=== PATIENT | male | born 1960 | race Two or more races ===

== ENCOUNTER 2021-03-15 11:08 | Inpatient (IN) ==
[2021-03-15] MEDS ORDERED: hydrALAZINE 20 MG/1 ML VIAL IV PRN ×2 (11:18→21:58)
[2021-03-15] MEDS ORDERED: MAGNESIUM SULF RIDER 2 GM/50 ML PREMIX IV PRN (11:18)
[2021-03-15] MEDS ORDERED: ALUMINUM/MAGNES/SIMETH MAX STR 30 ML UDCUP PO PRN ×2 (11:18→21:50)
[2021-03-15] MEDS ORDERED: MAGNESIUM SULF RIDER 4 GM/100 ML PREMIX IV PRN (11:18)
[2021-03-15] MEDS ORDERED: ZALEPLON 5 MG CAPSULE PO PRN ×2 (11:18→22:04)
[2021-03-15] MEDS ORDERED: diphenhydrAMINE CAP 25 MG CAPSULE PO PRN ×2 (11:18→21:56)
[2021-03-15] MEDS ORDERED: ONDANSETRON 4 MG/2 ML VIAL IV PRN ×2 (11:18→22:03)
[2021-03-15] MEDS ORDERED: METOPROLOL TARTRATE 50 MG TABLET PO SCH (21:00)
[2021-03-15] MEDS ORDERED: FLECAINIDE 50 MG TABLET PO SCH (21:00)
[2021-03-15] MEDS ORDERED: APIXABAN 5 MG TABLET PO SCH (21:00)
[2021-03-15] MEDS ORDERED: MORPHINE 4 MG/1 ML VIAL IV PRN (22:02)
[2021-03-15] MEDS: FLECAINIDE 50 MG TABLET PO SCH (23:38)
[2021-03-15] MEDS: APIXABAN 5 MG TABLET PO SCH (23:38)
[2021-03-15] MEDS: METOPROLOL TARTRATE 50 MG TABLET PO SCH (23:38)
[2021-03-15] MEDS: FUROSEMIDE 40 MG/4 ML VIAL IV SCH (23:42)
[2021-03-16 06:13] LABS: Basophils % 0.3 % (0.0-0.8); Eosinophils % 0.1 % (0.00-10.9); Hematocrit 43.7 VOL% (42.0-52.0); Hemoglobin 14.5 GM/DL (14.0-18.0); Immature Granulocytes % 0.5 %; Immature Granulocytes Absolute 0.05 #; Lymphocytes # 1.4 10*3/uL (1.4-4.0); Lymphocytes % 14.9 % (21.2-54.2); Mean Corpuscular HGB Conc 33.2 GM/DL (32-36); Mean Platelet Volume 11.3 FL (9.6-12.0); Monocytes % 14.4 % (1.7-12.7); Neutrophils % 69.8 % (38.7-73.9); Platelet Count 231 T/CUMM (130-400); Red Blood Count 4.37 MC/CUMM (3.8-5.5); White Blood Count 9.4 T/CUMM (4-12)
[2021-03-16 06:25] LABS: Albumin 3.1 G/DL (3.4-5.0); Bilirubin,Total 3.9 MG/DL (0.2-1.0); Calcium 9.2 MG/DL (8.5-10.1); Osmolality,Calculated 292.7 MOS/KG (273-304); Potassium 4.4 MMOL/L (3.5-5.1); Risk Ratio 2.66; Total Protein 6.2 G/DL (6.4-8.2); VLDL CHOLESTEROL 10.6 MG/DL
[2021-03-16] MEDS ORDERED: FUROSEMIDE 40 MG/4 ML VIAL IV SCH (08:00)
[2021-03-16] MEDS: PANTOPRAZOLE 40 MG TABLET PO SCH (08:28)
[2021-03-16] MEDS: METOPROLOL TARTRATE 50 MG TABLET PO SCH (08:28)
[2021-03-16] MEDS: APIXABAN 5 MG TABLET PO SCH (08:28)
[2021-03-16] MEDS: FLECAINIDE 50 MG TABLET PO SCH ×2 (08:28→20:48)
[2021-03-16] MEDS: FUROSEMIDE 40 MG/4 ML VIAL IV SCH ×2 (08:29→16:40)
[2021-03-16] MEDS ORDERED: PANTOPRAZOLE 40 MG TABLET PO SCH (09:00)
[2021-03-16] MEDS: METOPROLOL TARTRATE 25 MG TABLET PO SCH ×2 (16:40→20:48)
[2021-03-17 05:57] LABS: Basophils % 0.4 % (0.0-0.8); Eosinophils % 0.4 % (0.00-10.9); Hematocrit 42.1 VOL% (42.0-52.0); Hemoglobin 13.9 GM/DL (14.0-18.0); Immature Granulocytes % 0.5 %; Immature Granulocytes Absolute 0.04 #; Lymphocytes # 1.4 10*3/uL (1.4-4.0); Lymphocytes % 17.7 % (21.2-54.2); Mean Corpuscular Volume 98.8 FL (87-102); Mean Platelet Volume 11.2 FL (9.6-12.0); Monocytes % 14.8 % (1.7-12.7); Neutrophils % 66.2 % (38.7-73.9); Platelet Count 209 T/CUMM (130-400); Red Blood Count 4.26 MC/CUMM (3.8-5.5); Red Cell Distribution Width 12.9 % (9.3-17.3)
[2021-03-17 06:14] LABS: Albumin 2.7 G/DL (3.4-5.0); Bilirubin,Total 2.9 MG/DL (0.2-1.0); Calcium 8.5 MG/DL (8.5-10.1); Osmolality,Calculated 298.3 MOS/KG (273-304); Potassium 3.5 MMOL/L (3.5-5.1); Total Protein 5.6 G/DL (6.4-8.2)
[2021-03-17 06:15] LABS: Troponin I 0.077 NG/ML (0.00-0.045)
[2021-03-17] MEDS: PANTOPRAZOLE 40 MG TABLET PO SCH (08:37)
[2021-03-17] MEDS: METOPROLOL TARTRATE 25 MG TABLET PO SCH ×3 (08:37→20:18)
[2021-03-17] MEDS: FLECAINIDE 50 MG TABLET PO SCH ×2 (08:37→20:18)
[2021-03-17] MEDS: FUROSEMIDE 40 MG/4 ML VIAL IV SCH ×2 (08:38→16:58)
[2021-03-18 05:58] LABS: Basophils % 0.6 % (0.0-0.8); Eosinophils # 0.1 10*3/uL (0.0-0.87); Eosinophils % 1.1 % (0.00-10.9); Hematocrit 42.1 VOL% (42.0-52.0); Hemoglobin 13.8 GM/DL (14.0-18.0); Immature Granulocytes % 0.3 %; Immature Granulocytes Absolute 0.02 #; Lymphocytes # 1.6 10*3/uL (1.4-4.0); Lymphocytes % 21.4 % (21.2-54.2); Mean Corpuscular HGB Conc 32.8 GM/DL (32-36); Mean Corpuscular Volume 99.3 FL (87-102); Monocytes % 13.5 % (1.7-12.7); Neutrophils % 63.1 % (38.7-73.9); Platelet Count 201 T/CUMM (130-400); Red Blood Count 4.24 MC/CUMM (3.8-5.5); Red Cell Distribution Width 12.6 % (9.3-17.3); White Blood Count 7.3 T/CUMM (4-12)
[2021-03-18 06:27] LABS: Albumin 2.6 G/DL (3.4-5.0); Bilirubin,Total 1.2 MG/DL (0.2-1.0); Calcium 8.3 MG/DL (8.5-10.1); Osmolality,Calculated 295.1 MOS/KG (273-304); Potassium 3.2 MMOL/L (3.5-5.1); Total Protein 5.5 G/DL (6.4-8.2)
[2021-03-18] MEDS ORDERED: diphenhydrAMINE CAP 50 MG CAPSULE PO ONE (07:09)
[2021-03-18] MEDS ORDERED: MAGNESIUM SULF RIDER 2 GM/50 ML PREMIX IV PRN (07:09)
[2021-03-18] MEDS ORDERED: DIAZEPAM 5 MG TABLET PO ONE ×2 (07:09→13:45)
[2021-03-18] MEDS ORDERED: POTASSIUM CHLORIDE 20 MEQ TABLET PO ONE (07:11)
[2021-03-18] MEDS ORDERED: SODIUM CHLORIDE 0.9% 1,000 ML IV SCH (07:30)
[2021-03-18] MEDS: FUROSEMIDE 40 MG/4 ML VIAL IV SCH ×2 (08:48→16:46)
[2021-03-18] MEDS: METOPROLOL TARTRATE 25 MG TABLET PO SCH ×3 (08:49→20:56)
[2021-03-18] MEDS: FLECAINIDE 50 MG TABLET PO SCH ×2 (08:49→20:57)
[2021-03-18] MEDS: PANTOPRAZOLE 40 MG TABLET PO SCH (08:49)
[2021-03-18] MEDS: POTASSIUM CHLORIDE RIDER 10 MEQ in PREMIX 1 EACH IV PRN ×2 (08:50→10:18)
[2021-03-18] MEDS ORDERED: DEXTROSE 50% 25 GM/50 ML VIAL IV PRN (11:00)
[2021-03-18] MEDS ORDERED: GLUCAGON 1 MG VIAL IM PRN (11:00)
[2021-03-18] MEDS: CHLORHEXIDINE 4% SOLN 118 ML BOTTLE TOP SCH ×2 (12:12→20:54)
[2021-03-18] MEDS: CHLORHEXIDINE 0.12% ORAL RINSE 60 ML BOTTLE SWISH/SPIT SCH ×2 (12:12→20:56)
[2021-03-18] MEDS ORDERED: LIDOCAINE 1% 20 ML VIAL ONE (13:06)
[2021-03-18] MEDS ORDERED: HEPARIN/NACL 0.9% 2 UNITS/ML 1,000 UNIT/500 ML BAG IV ONE (13:06)
[2021-03-18] MEDS ORDERED: MIDAZOLAM 2 MG/2 ML VIAL ONE (14:11)
[2021-03-18] MEDS ORDERED: fentaNYL 100 MCG/2 ML VIAL ONE (14:11)
[2021-03-18 16:43] LABS: ABG Base Excess 7.4 MMOL/L (-2.5-2.5); ABG HCO3 31.2 MMOL/L (20-26); ABG PCO2 38.2 MM HG (35-48); ABG PH 7.515 (7.35-7.45); ABG TCO2 26.2 MMOL/L (23-27); Allen Test Positive
[2021-03-18] MEDS: MORPHINE 4 MG/1 ML VIAL IV PRN ×2 (16:45→23:10)
[2021-03-18] MEDS: CLORAZEPATE 7.5 MG TABLET PO PRN (17:17)
[2021-03-18 19:35] LABS: Bilirubin,Urine Negative (Negative); Blood, Urine Small mg/dL (Negative); Glucose,Urine (UA) Negative (Negative); Ketones,Urine Negative (Negative); Nitrite,Urine Negative (Negative); Protein,Urine Negative; RBC,Urine 1 /HPF (0-4); Urine Appearance CLEAR (Clear); Urine Color Yellow (Yellow); Urine Specific Gravity 1.034 (1.001-1.035)
[2021-03-19] MEDS: CLORAZEPATE 7.5 MG TABLET PO PRN (00:15)
[2021-03-19] MEDS: CHLORHEXIDINE 4% SOLN 118 ML BOTTLE TOP SCH ×2 (01:45→04:30)
[2021-03-19 03:02] LABS: Basophils % 0.4 % (0.0-0.8); Eosinophils # 0.1 10*3/uL (0.0-0.87); Eosinophils % 0.7 % (0.00-10.9); Hematocrit 44.9 VOL% (42.0-52.0); Hemoglobin 14.6 GM/DL (14.0-18.0); Immature Granulocytes % 0.6 %; Immature Granulocytes Absolute 0.04 #; Lymphocytes # 1.1 10*3/uL (1.4-4.0); Lymphocytes % 15.4 % (21.2-54.2); Mean Corpuscular HGB Conc 32.5 GM/DL (32-36); Mean Corpuscular Volume 100.7 FL (87-102); Mean Platelet Volume 10.8 FL (9.6-12.0); Monocytes % 15.2 % (1.7-12.7); Neutrophils % 67.7 % (38.7-73.9); Platelet Count 199 T/CUMM (130-400); Red Blood Count 4.46 MC/CUMM (3.8-5.5); Red Cell Distribution Width 12.5 % (9.3-17.3); White Blood Count 7.1 T/CUMM (4-12)
[2021-03-19] MEDS: MORPHINE 4 MG/1 ML VIAL IV PRN ×3 (03:26→21:05)
[2021-03-19 03:35] LABS: Calcium 8.4 MG/DL (8.5-10.1); Osmolality,Calculated 289.3 MOS/KG (273-304); Potassium 3.4 MMOL/L (3.5-5.1)
[2021-03-19 04:18] LABS: Hepatitis B Core IgM Quant 0.12 Index; Hepatitis B Surface Ag Quant < 0.10 Index; Hepatitis B Surface Ag Result Non-Reactive (NonReactive); Hepatitis C Virus Ab Quant 0.11 Index; Hepatitis C Virus Ab Result Non-Reactive (NonReactive)
[2021-03-19] MEDS ORDERED: VANCOMYCIN 1,000 MG VIAL ONE (04:22)
[2021-03-19] MEDS: POTASSIUM CHLORIDE RIDER 10 MEQ in PREMIX 1 EACH IV PRN ×2 (04:25→06:00)
[2021-03-19] MEDS ORDERED: CEFUROXIME INJ 1,500 MG in SODIUM CHLORIDE 0.9% 100 ML IV ONE (05:00)
[2021-03-19] MEDS ORDERED: MINERAL OIL/PETROLATUM OPH OINT 3.5 GM TUBE ONE (05:57)
[2021-03-19] MEDS ORDERED: AMINOCAPROIC ACID 5,000 MG/20 ML VIAL ONE (05:58)
[2021-03-19] MEDS ORDERED: SODIUM CHLORIDE 0.9% 1,000 ML IV ONE (05:59)
[2021-03-19] MEDS ORDERED: MIDAZOLAM 10 MG/2 ML VIAL ONE ×4 (05:59→09:13)
[2021-03-19] MEDS ORDERED: LACTATED RINGERS 1,000 ML IV ONE (05:59)
[2021-03-19] MEDS ORDERED: HEPARIN/NACL 0.9% 2 UNITS/ML 1,000 UNIT/500 ML BAG IV ONE (05:59)
[2021-03-19] MEDS ORDERED: SODIUM CHLORIDE 0.9% 250 ML IV ONE (05:59)
[2021-03-19] MEDS ORDERED: LIDOCAINE 2% 5 ML VIAL ONE ×2 (06:00→10:27)
[2021-03-19] MEDS ORDERED: ETOMIDATE 40 MG/20 ML VIAL IV ONE (06:04)
[2021-03-19] MEDS ORDERED: VECURONIUM 10 MG VIAL IV ONE ×5 (06:06→09:13)
[2021-03-19] MEDS ORDERED: SUFentanil 250 MCG/5 ML AMP ONE ×2 (06:07→07:54)
[2021-03-19] MEDS ORDERED: CALCIUM CHLORIDE 1,000 MG/10 ML VIAL IV ONE ×2 (06:09→10:34)
[2021-03-19 07:41] LABS: ABG Base Excess 7.7 MMOL/L (-2.5-2.5); ABG HCO3 31.5 MMOL/L (20-26); ABG PCO2 41.8 MM HG (35-48); ABG PH 7.491 (7.35-7.45); Glucose Heart Surgery 137 MG/DL (74-106); Hematocrit Heart Surgery 44.5 PERCENT (42-52); Hemoglobin Heart Surgery 14.5 G/DL (14.0-18.0); Ionized Calcium Arterial 1.18 MMOL/L (1.21-1.46); PCO2 Patient Temp Arterial 41.8 MMHG; PH Patient Temp Arterial 7.491; Patient Temperature 37 CELCIUS; Potassium Heart/CVR 3.4 MMOL/L (3.5-5.1); Sodium Heart/CVR 139 MMOL/L (135-145)
[2021-03-19] MEDS ORDERED: AMIODARONE 150 MG/3 ML VIAL ONE ×2 (08:01→08:02)
[2021-03-19 08:57] LABS: Hematocrit Heart Surgery 37.4 PERCENT (42-52); Hemoglobin Heart Surgery 12.2 G/DL (14.0-18.0); PCO2 Patient Temp Venous 37.8 MM HG; PH Patient Temp Venous 7.538; PO2 Patient Temp Venous 49.2 MM HG; Potassium Heart/CVR 3.6 MMOL/L (3.5-5.1); VBG HCO3 32.5 MEQ/L (24-28); VBG PCO2 37.8 MMHG (41-51); VBG PH 7.538; VBG PO2 49.2 MMHG (17-40); VBG Total CO2 28.3 MMOL/L
[2021-03-19] MEDS ORDERED: MULTIVITAMIN (CENTRUM) TABLET PO SCH (09:00)
[2021-03-19] MEDS ORDERED: SODIUM CHLORIDE 0.9% 200 ML IV ONE (09:05)
[2021-03-19] MEDS ORDERED: SEVOFLURANE 1 UNIT/15 MINUTE INH ONE (09:08)
[2021-03-19] MEDS ORDERED: PHENYLEPHRINE DRIP 20 MG/250 ML PREMIX IV ONE (09:08)
[2021-03-19] MEDS ORDERED: diphenhydrAMINE 50 MG/1 ML VIAL ONE (09:13)
[2021-03-19 09:27] LABS: Hematocrit Heart Surgery 36.3 PERCENT (42-52); Hemoglobin Heart Surgery 11.8 G/DL (14.0-18.0); PCO2 Patient Temp Venous 29.9 MM HG; PH Patient Temp Venous 7.618; PO2 Patient Temp Venous 41.6 MM HG; Potassium Heart/CVR 3.7 MMOL/L (3.5-5.1); VBG Base Excess 9.2 MEQ/L (0-4); VBG HCO3 32.8 MEQ/L (24-28); VBG Oxygen Saturation 88.4 %; VBG PCO2 34.6 MMHG (41-51); VBG PH 7.57; VBG PO2 51.1 MMHG (17-40)
[2021-03-19] MEDS ORDERED: FAMOTIDINE 20 MG/2 ML VIAL IV ONE (09:28)
[2021-03-19] MEDS ORDERED: ALBUMIN 5% 25.0 GM/500 ML VIAL IV ONE (09:35)
[2021-03-19] MEDS ORDERED: CALCIUM CHLORIDE 1,000 MG/10 ML SYRINGE IV ONE (09:36)
[2021-03-19] MEDS ORDERED: SODIUM BICARBONATE 50 MEQ/50 ML SYRINGE IV ONE (09:36)
[2021-03-19] MEDS ORDERED: EPINEPHrine 1 MG/10 ML SYRINGE ONE (09:36)
[2021-03-19] MEDS ORDERED: PHENYLEPHRINE DRIP 40 MG/250 ML PREMIX IV ONE (09:38)
[2021-03-19] MEDS: FUROSEMIDE 40 MG/4 ML VIAL IV SCH (10:11)
[2021-03-19] MEDS: FLECAINIDE 50 MG TABLET PO SCH (10:12)
[2021-03-19] MEDS: CHLORHEXIDINE 0.12% ORAL RINSE 60 ML BOTTLE SWISH/SPIT SCH (10:12)
[2021-03-19] MEDS: PANTOPRAZOLE 40 MG TABLET PO SCH (10:12)
[2021-03-19] MEDS: METOPROLOL TARTRATE 25 MG TABLET PO SCH (10:12)
[2021-03-19] MEDS ORDERED: ALBUMIN 25% 25 GM/100 ML VIAL IV ONE (10:27)
[2021-03-19] MEDS ORDERED: MAGNESIUM SULFATE 5 GM/10 ML VIAL IV ONE (10:27)
[2021-03-19] MEDS ORDERED: methylPREDNISolone SOD SUC 1,000 MG/8 ML VIAL ONE (10:27)
[2021-03-19] MEDS ORDERED: FUROSEMIDE 20 MG/2 ML VIAL ONE (10:28)
[2021-03-19] MEDS ORDERED: DEXTROSE 5% KCL 20 MEQ 20 MEQ/1,000 ML BAG IV ONE (10:28)
[2021-03-19] MEDS ORDERED: HEPARIN 10,000 UNIT/10 ML VIAL ONE (10:28)
[2021-03-19] MEDS ORDERED: PROTAMINE SULFATE 50 MG/5 ML VIAL IV ONE (10:28)
[2021-03-19] MEDS ORDERED: SODIUM BICARBONATE 50 MEQ/50 ML VIAL IV ONE (10:28)
[2021-03-19] MEDS ORDERED: PROTAMINE SULFATE 250 MG/25 ML VIAL IV ONE (10:28)
[2021-03-19] MEDS ORDERED: MANNITOL 100 GM/500 ML BAG IV ONE (10:28)
[2021-03-19 10:29] LABS: ABG Base Excess 6.5 MMOL/L (-2.5-2.5); ABG HCO3 30.4 MMOL/L (20-26); ABG PCO2 28.4 MM HG (35-48); ABG PH 7.596 (7.35-7.45); ABG TCO2 24.2 MMOL/L (23-27); Glucose Heart Surgery 240 MG/DL (74-106); Hematocrit Heart Surgery 37.5 PERCENT (42-52); Hemoglobin Heart Surgery 12.2 G/DL (14.0-18.0); Ionized Calcium Arterial 1.18 MMOL/L (1.21-1.46); PCO2 Patient Temp Arterial 28.4 MMHG; PH Patient Temp Arterial 7.596; Patient Temperature 37 CELCIUS; Potassium Heart/CVR 3.2 MMOL/L (3.5-5.1); Sodium Heart/CVR 138 MMOL/L (135-145)
[2021-03-19] MEDS: SODIUM CHLORIDE 0.45% 1,000 ML IV SCH ×2 (10:57)
[2021-03-19] MEDS ORDERED: AMIODARONE INJ 450 MG in DEXTROSE 5% 241 ML IV SCH (11:00)
[2021-03-19] MEDS ORDERED: AMIODARONE 450 MG/9 ML VIAL IV ONE (11:22)
[2021-03-19] MEDS ORDERED: DEXTROSE 50% 25 GM/50 ML VIAL IV PRN ×2 (11:28)
[2021-03-19] MEDS ORDERED: POTASSIUM CHLORIDE RIDER 10 MEQ in PREMIX 1 EACH IV PRN (11:28)
[2021-03-19] MEDS ORDERED: LACTATED RINGERS 250 ML IV PRN (11:28)
[2021-03-19] MEDS ORDERED: MAGNESIUM SULF RIDER 2 GM/50 ML PREMIX IV PRN (11:28)
[2021-03-19] MEDS ORDERED: ONDANSETRON 4 MG/2 ML VIAL IV PRN (11:28)
[2021-03-19] MEDS ORDERED: ACETAMINOPHEN 650 MG SUPP RECTAL PRN (11:28)
[2021-03-19] MEDS ORDERED: VECURONIUM 10 MG VIAL IV PRN ×2 (11:28)
[2021-03-19] MEDS ORDERED: MIDAZOLAM 10 MG/2 ML VIAL IV PRN (11:28)
[2021-03-19] MEDS ORDERED: MAGNESIUM SULF RIDER 4 GM/100 ML PREMIX IV PRN (11:28)
[2021-03-19] MEDS ORDERED: MIDAZOLAM 2 MG/2 ML VIAL IV PRN (11:28)
[2021-03-19] MEDS ORDERED: INSULIN REGULAR 100 UNIT/ML IV ONE (11:28)
[2021-03-19] MEDS ORDERED: INSULIN REGULAR 100 UNIT/ML IV PRN (11:28)
[2021-03-19] MEDS ORDERED: CHLORHEXIDINE 4% SOLN 118 ML BOTTLE TOP PRN (11:28)
[2021-03-19] MEDS ORDERED: CALCIUM CHLORIDE 1,000 MG/10 ML SYRINGE IV PRN (11:28)
[2021-03-19] MEDS ORDERED: PHENYLEPHRINE DRIP 40 MG/250 ML PREMIX IV PRN (11:28)
[2021-03-19] MEDS ORDERED: NITROPRUSSIDE 100 MG in DEXTROSE 5% 250 ML IV PRN (11:28)
[2021-03-19] MEDS ORDERED: MORPHINE 10 MG/1 ML VIAL IV PRN (11:28)
[2021-03-19 11:32] LABS: ABG Base Excess 7.5 MMOL/L (-2.5-2.5); ABG HCO3 31.3 MMOL/L (20-26); ABG PCO2 34.1 MM HG (35-48); ABG PH 7.551 (7.35-7.45); ABG TCO2 25.2 MMOL/L (23-27); Glucose Heart Surgery 222 MG/DL (74-106); Hematocrit Heart Surgery 44.6 PERCENT (42-52); Hemoglobin Heart Surgery 14.5 G/DL (14.0-18.0)
[2021-03-19 11:43] LABS: Basophils % 0.2 % (0.0-0.8); Eosinophils # 0.1 10*3/uL (0.0-0.87); Eosinophils % 0.7 % (0.00-10.9); Hematocrit 43.2 VOL% (42.0-52.0); Hemoglobin 14.1 GM/DL (14.0-18.0); Immature Granulocytes % 0.7 %; Immature Granulocytes Absolute 0.06 #; Lymphocytes # 0.5 10*3/uL (1.4-4.0); Lymphocytes % 6.3 % (21.2-54.2); Mean Corpuscular HGB Conc 32.6 GM/DL (32-36); Mean Corpuscular Volume 99.5 FL (87-102); Monocytes % 6.4 % (1.7-12.7); Neutrophils % 85.7 % (38.7-73.9); Platelet Count 158 T/CUMM (130-400); Red Blood Count 4.34 MC/CUMM (3.8-5.5); Red Cell Distribution Width 12.3 % (9.3-17.3); White Blood Count 8.2 T/CUMM (4-12)
[2021-03-19] MEDS: ALBUMIN 5% 12.5 GM/250 ML VIAL IV PRN ×4 (11:44→17:48)
[2021-03-19 11:56] LABS: INR 1.3; PT Patient Result 14.5 SECS (10.5-12.0); Partial Thromboplastin Time 26.3 SECS (23.9-33.8)
[2021-03-19 12:01] LABS: CKMB % 9.7 %
[2021-03-19 12:04] LABS: High Sensitive Troponin I* 4315.2 ng/L (0-78)
[2021-03-19 12:05] LABS: Calcium 10.2 MG/DL (8.5-10.1); Osmolality,Calculated 293.1 MOS/KG (273-304); Potassium 4.1 MMOL/L (3.5-5.1); Total Protein 5.7 G/DL (6.4-8.2)
[2021-03-19] MEDS: LACTATED RINGERS 1,000 ML IV PRN ×4 (12:15→18:42)
[2021-03-19] MEDS ORDERED: NITROGLYCERIN DRIP 50 MG/250 ML BOTTLE IV PRN (13:37)
[2021-03-19 14:19] LABS: ABG Base Excess 5.7 MMOL/L (-2.5-2.5); ABG HCO3 29.5 MMOL/L (20-26); ABG PH 7.519 (7.35-7.45); ABG PO2 78.1 MM HG (80-95); ABG TCO2 24.8 MMOL/L (23-27); Glucose Heart Surgery 189 MG/DL (74-106); Hematocrit Heart Surgery 39.6 PERCENT (42-52); Hemoglobin Heart Surgery 12.9 G/DL (14.0-18.0); Potassium Heart/CVR 3.5 MMOL/L (3.5-5.1)
[2021-03-19 17:17] LABS: ABG Base Excess 4.7 MMOL/L (-2.5-2.5); ABG HCO3 28.6 MMOL/L (20-26); ABG Oxygen Saturation 98.6 % (95-100); ABG PCO2 34.9 MM HG (35-48); ABG PH 7.507 (7.35-7.45); ABG TCO2 24.4 MMOL/L (23-27); Glucose Heart Surgery 180 MG/DL (74-106); Hematocrit Heart Surgery 35.9 PERCENT (42-52); Hemoglobin Heart Surgery 11.7 G/DL (14.0-18.0); Potassium Heart/CVR 3.7 MMOL/L (3.5-5.1)
[2021-03-19] MEDS: POTASSIUM CHLORIDE RIDER 20 MEQ in PREMIX 1 EACH IV PRN ×2 (17:22→20:02)
[2021-03-19] MEDS: CEFUROXIME INJ 1,500 MG in SODIUM CHLORIDE 0.9% 100 ML IV SCH (18:11)
[2021-03-19 19:48] LABS: ABG Oxygen Saturation 98.8 % (95-100); ABG PCO2 35.1 MM HG (35-48); ABG PH 7.495 (7.35-7.45); ABG TCO2 23.8 MMOL/L (23-27); Glucose Heart Surgery 199 MG/DL (74-106); Hematocrit Heart Surgery 37.9 PERCENT (42-52); Hemoglobin Heart Surgery 12.3 G/DL (14.0-18.0); Potassium Heart/CVR 3.8 MMOL/L (3.5-5.1)
[2021-03-19 20:17] LABS: CKMB % 6.7 %
[2021-03-19 20:23] LABS: High Sensitive Troponin I* 3790.6 ng/L (0-78)
[2021-03-19 20:49] LABS: ABG Base Excess 2.9 MMOL/L (-2.5-2.5); ABG PCO2 37.9 MM HG (35-48); ABG PH 7.457 (7.35-7.45); ABG TCO2 23.5 MMOL/L (23-27); Glucose Heart Surgery 195 MG/DL (74-106); Hematocrit Heart Surgery 37.8 PERCENT (42-52); Hemoglobin Heart Surgery 12.3 G/DL (14.0-18.0); Potassium Heart/CVR 4.5 MMOL/L (3.5-5.1)
[2021-03-19] MEDS: AMIODARONE INJ 450 MG in DEXTROSE 5% 241 ML IV SCH (21:09)
[2021-03-19] MEDS ORDERED: FUROSEMIDE 40 MG/4 ML VIAL IV PRN (21:25)
[2021-03-19 22:21] LABS: ABG Base Excess 2.9 MMOL/L (-2.5-2.5); ABG Oxygen Saturation 98.8 % (95-100); ABG PCO2 38.9 MM HG (35-48); ABG PH 7.448 (7.35-7.45); ABG TCO2 23.8 MMOL/L (23-27); Glucose Heart Surgery 192 MG/DL (74-106); Hematocrit Heart Surgery 37.2 PERCENT (42-52); Hemoglobin Heart Surgery 12.1 G/DL (14.0-18.0); Potassium Heart/CVR 4.2 MMOL/L (3.5-5.1)
[2021-03-19 23:46] LABS: ABG Base Excess 4.1 MMOL/L (-2.5-2.5); ABG HCO3 28.1 MMOL/L (20-26); ABG Oxygen Saturation 99.3 % (95-100); ABG PCO2 38.3 MM HG (35-48); ABG TCO2 24.5 MMOL/L (23-27); Glucose Heart Surgery 187 MG/DL (74-106); Potassium Heart/CVR 4.3 MMOL/L (3.5-5.1)
[2021-03-20 00:39] LABS: ABG Base Excess 3.7 MMOL/L (-2.5-2.5); ABG HCO3 27.7 MMOL/L (20-26); ABG Oxygen Saturation 97.9 % (95-100); ABG PCO2 39.4 MM HG (35-48); ABG PH 7.455 (7.35-7.45); ABG PO2 98.6 MM HG (80-95); ABG TCO2 24.3 MMOL/L (23-27); Glucose Heart Surgery 189 MG/DL (74-106); Hematocrit Heart Surgery 38.5 PERCENT (42-52); Hemoglobin Heart Surgery 12.5 G/DL (14.0-18.0); Potassium Heart/CVR 4.3 MMOL/L (3.5-5.1)
[2021-03-20] MEDS: INSULIN REGULAR 100 UNIT/ML SUBCUT SCH ×3 (00:59→08:03)
[2021-03-20] MEDS: CHLORHEXIDINE 0.12% ORAL RINSE 60 ML BOTTLE SWISH/SPIT SCH ×3 (01:24→21:59)
[2021-03-20 04:32] LABS: ABG Base Excess 3.7 MMOL/L (-2.5-2.5); ABG HCO3 27.2 MMOL/L (20-26); ABG Oxygen Saturation 97.6 % (95-100); ABG PH 7.484 (7.35-7.45); ABG PO2 102.5 MM HG (80-95); ABG TCO2 28.3 MMOL/L (23-27); Glucose Heart Surgery 152 MG/DL (74-106); Hemoglobin Heart Surgery 12.6 G/DL (14.0-18.0)
[2021-03-20 04:47] LABS: Basophils % 0.1 % (0.0-0.8); Hematocrit 37.7 VOL% (42.0-52.0); Hemoglobin 12.2 GM/DL (14.0-18.0); Immature Granulocytes % 0.5 %; Immature Granulocytes Absolute 0.07 #; Lymphocytes # 0.3 10*3/uL (1.4-4.0); Lymphocytes % 2.5 % (21.2-54.2); Mean Corpuscular HGB Conc 32.4 GM/DL (32-36); Mean Corpuscular Volume 101.9 FL (87-102); Mean Platelet Volume 11.1 FL (9.6-12.0); Monocytes % 9.1 % (1.7-12.7); Neutrophils % 87.8 % (38.7-73.9); Platelet Count 140 T/CUMM (130-400); Red Cell Distribution Width 12.5 % (9.3-17.3); White Blood Count 13.4 T/CUMM (4-12)
[2021-03-20 04:56] LABS: Lymphocytes 4 % (20-55); Segmented Neutrophils 92 % (50-85); Total Cells Counted 100
[2021-03-20 04:57] LABS: Hypochromasia 1+; Microcytosis 1+; Ovalocytes Slight; Platelet Estimate Adequate
[2021-03-20 05:12] LABS: Calcium 9.2 MG/DL (8.5-10.1); Potassium 4.1 MMOL/L (3.5-5.1)
[2021-03-20 05:24] LABS: High Sensitive Troponin I* 3320.4 ng/L (0-78)
[2021-03-20 06:06] LABS: Albumin 3.5 G/DL (3.4-5.0); Bilirubin,Direct 0.43 MG/DL (0.0-0.20); Bilirubin,Total 2.9 MG/DL (0.2-1.0); Calcium 9.5 MG/DL (8.5-10.1); Osmolality,Calculated 295.8 MOS/KG (273-304); Potassium 4.2 MMOL/L (3.5-5.1); Total Protein 5.9 G/DL (6.4-8.2)
[2021-03-20] MEDS ORDERED: NITROPRUSSIDE 50 MG/2 ML VIAL ONE (06:14)
[2021-03-20] MEDS: CEFUROXIME INJ 1,500 MG in SODIUM CHLORIDE 0.9% 100 ML IV SCH ×2 (06:40→18:35)
[2021-03-20] MEDS: INSULIN REGULAR DRIP 100 ML IV SCH ×2 (06:42→15:07)
[2021-03-20] MEDS: METOPROLOL TARTRATE 25 MG TABLET PO SCH ×2 (08:03→21:57)
[2021-03-20] MEDS: amLODIPine 5 MG TABLET PO SCH (08:03)
[2021-03-20] MEDS: AMIODARONE 200 MG TABLET PO SCH ×2 (11:46→21:57)
[2021-03-20] MEDS: hydrALAZINE 10 MG TABLET PO SCH ×2 (11:46→21:56)
[2021-03-20] MEDS ORDERED: ALUMINUM/MAGNES/SIMETH MAX STR 30 ML UDCUP PO PRN (11:51)
[2021-03-20] MEDS ORDERED: MAGNESIUM HYDROXIDE SUSP 30 ML UDCUP PO PRN (11:51)
[2021-03-20] MEDS ORDERED: DEXTROSE 50% 25 GM/50 ML VIAL IV PRN (11:51)
[2021-03-20] MEDS ORDERED: ZALEPLON 5 MG CAPSULE PO PRN (11:51)
[2021-03-20] MEDS ORDERED: GLUCAGON 1 MG VIAL IM PRN (11:51)
[2021-03-20] MEDS ORDERED: ACETAMINOPHEN 325 MG TABLET PO PRN (11:51)
[2021-03-20] MEDS ORDERED: POTASSIUM CHLORIDE 20 MEQ TABLET PO PRN (11:51)
[2021-03-20] MEDS ORDERED: MAGNESIUM SULF RIDER 4 GM/100 ML PREMIX IV PRN (11:51)
[2021-03-20] MEDS ORDERED: ONDANSETRON 4 MG/2 ML VIAL IV PRN (11:51)
[2021-03-20] MEDS ORDERED: MAGNESIUM SULF RIDER 2 GM/50 ML PREMIX IV PRN (11:51)
[2021-03-20] MEDS ORDERED: SODIUM CHLOR 0.45% KCL 20 MEQ 20 MEQ/1,000 ML BAG IV SCH (12:00)
[2021-03-20] MEDS: ASPIRIN EC 325 MG TABLET PO SCH (13:24)
[2021-03-20 14:02] LABS: CKMB % 2.4 %; High Sensitive Troponin I* 2649.8 ng/L (0-78)
[2021-03-20] MEDS: AMIODARONE INJ 450 MG in DEXTROSE 5% 241 ML IV SCH (15:07)
[2021-03-20] MEDS: SODIUM CHLORIDE 0.45% 1,000 ML IV SCH ×2 (15:07)
[2021-03-20] MEDS: oxyCODONE/ACETAMINOPHEN 5-325 MG TABLET PO PRN (23:24)
[2021-03-21 05:12] LABS: Basophils % 0.1 % (0.0-0.8); Hematocrit 36.5 VOL% (42.0-52.0); Hemoglobin 11.4 GM/DL (14.0-18.0); Immature Granulocytes % 0.7 %; Immature Granulocytes Absolute 0.12 #; Lymphocytes # 0.9 10*3/uL (1.4-4.0); Lymphocytes % 5.1 % (21.2-54.2); Mean Corpuscular HGB Conc 31.2 GM/DL (32-36); Mean Corpuscular Volume 104.3 FL (87-102); Mean Platelet Volume 11.3 FL (9.6-12.0); Monocytes % 11.3 % (1.7-12.7); Neutrophils % 82.8 % (38.7-73.9); Platelet Count 113 T/CUMM (130-400); White Blood Count 18.1 T/CUMM (4-12)
[2021-03-21 05:32] LABS: Hypochromasia 1+; Microcytosis 1+
[2021-03-21 05:35] LABS: Calcium 8.9 MG/DL (8.5-10.1); Osmolality,Calculated 279.8 MOS/KG (273-304); Potassium 4.5 MMOL/L (3.5-5.1)
[2021-03-21 05:38] LABS: Bilirubin,Direct 0.46 MG/DL (0.0-0.20); Bilirubin,Total 2.4 MG/DL (0.2-1.0); Calcium 9.1 MG/DL (8.5-10.1); Osmolality,Calculated 281.7 MOS/KG (273-304); Potassium 4.5 MMOL/L (3.5-5.1); Total Protein 5.7 G/DL (6.4-8.2)
[2021-03-21 05:44] LABS: Albumin 2.9 G/DL (3.4-5.0); Bilirubin,Direct 0.43 MG/DL (0.0-0.20); Bilirubin,Indirect 2.4 MG/DL (0.0-1.0); Bilirubin,Total 2.8 MG/DL (0.2-1.0); High Sensitive Troponin I* 2141.7 ng/L (0-78); Total Protein 5.6 G/DL (6.4-8.2)
[2021-03-21] MEDS ORDERED: FUROSEMIDE 40 MG/4 ML VIAL IV ONE (06:00)
[2021-03-21] MEDS: amLODIPine 5 MG TABLET PO SCH (08:34)
[2021-03-21] MEDS: ASPIRIN EC 325 MG TABLET PO SCH (08:34)
[2021-03-21] MEDS: METOPROLOL TARTRATE 25 MG TABLET PO SCH ×2 (08:34→21:50)
[2021-03-21] MEDS: AMIODARONE 200 MG TABLET PO SCH ×2 (08:34→21:50)
[2021-03-21] MEDS: PANTOPRAZOLE 40 MG TABLET PO SCH (08:34)
[2021-03-21] MEDS: DOCUSATE SODIUM 100 MG CAPSULE PO SCH (08:34)
[2021-03-21] MEDS: FERROUS SULFATE 325 MG TABLET PO SCH (08:34)
[2021-03-21] MEDS: hydrALAZINE 10 MG TABLET PO SCH ×2 (08:35→21:50)
[2021-03-21] MEDS: CHLORHEXIDINE 0.12% ORAL RINSE 60 ML BOTTLE SWISH/SPIT SCH ×2 (08:35→21:51)
[2021-03-22 05:12] LABS: Basophils % 0.1 % (0.0-0.8); Eosinophils % 0.1 % (0.00-10.9); Hematocrit 36.8 VOL% (42.0-52.0); Immature Granulocytes % 0.8 %; Lymphocytes # 1.2 10*3/uL (1.4-4.0); Lymphocytes % 9.5 % (21.2-54.2); Mean Corpuscular HGB Conc 32.6 GM/DL (32-36); Mean Corpuscular Volume 101.1 FL (87-102); Mean Platelet Volume 11.2 FL (9.6-12.0); Monocytes % 12.1 % (1.7-12.7); Neutrophils % 77.4 % (38.7-73.9); Platelet Count 104 T/CUMM (130-400); Red Blood Count 3.64 MC/CUMM (3.8-5.5); Red Cell Distribution Width 12.9 % (9.3-17.3); White Blood Count 12.3 T/CUMM (4-12)
[2021-03-22 05:37] LABS: Calcium 8.8 MG/DL (8.5-10.1); Potassium 4.1 MMOL/L (3.5-5.1)
[2021-03-22 05:41] LABS: Albumin 2.7 G/DL (3.4-5.0); Bilirubin,Direct 0.47 MG/DL (0.0-0.20); Bilirubin,Total 1.7 MG/DL (0.2-1.0); Calcium 8.9 MG/DL (8.5-10.1); Osmolality,Calculated 282.7 MOS/KG (273-304); Potassium 4.1 MMOL/L (3.5-5.1); Total Protein 5.8 G/DL (6.4-8.2)
[2021-03-22 05:43] LABS: Alanine Aminotransferase 166 U/L (16-61); Albumin 2.7 G/DL (3.4-5.0); Alkaline Phosphatase 100 U/L (45-117); Aspartate Amino Transferase 60 U/L (0-37); Bilirubin,Indirect 1.3 MG/DL (0.0-1.0); Total Protein 5.7 G/DL (6.4-8.2)
[2021-03-22] MEDS: POLYETHYLENE GLYCOL POWDER 17 GM PACK PO SCH (09:36)
[2021-03-22] MEDS: amLODIPine 5 MG TABLET PO SCH (09:37)
[2021-03-22] MEDS: METOPROLOL TARTRATE 25 MG TABLET PO SCH ×2 (09:37→20:20)
[2021-03-22] MEDS: ASPIRIN EC 81 MG TABLET PO SCH (09:37)
[2021-03-22] MEDS: FERROUS SULFATE 325 MG TABLET PO SCH (09:37)
[2021-03-22] MEDS: AMIODARONE 200 MG TABLET PO SCH ×2 (09:37→20:19)
[2021-03-22] MEDS: hydrALAZINE 10 MG TABLET PO SCH ×2 (09:37→20:19)
[2021-03-22] MEDS: APIXABAN 5 MG TABLET PO SCH ×2 (09:37→20:20)
[2021-03-22] MEDS: PANTOPRAZOLE 40 MG TABLET PO SCH (09:37)
[2021-03-22] MEDS: DOCUSATE SODIUM 100 MG CAPSULE PO SCH (09:37)
[2021-03-22] MEDS: CHLORHEXIDINE 0.12% ORAL RINSE 60 ML BOTTLE SWISH/SPIT SCH ×2 (09:38→20:20)
[2021-03-22] MEDS: ASCORBIC ACID 500 MG TABLET PO SCH ×2 (10:20→20:19)
[2021-03-23 05:41] LABS: Basophils % 0.2 % (0.0-0.8); Eosinophils % 0.3 % (0.00-10.9); Hematocrit 37.5 VOL% (42.0-52.0); Hemoglobin 12.1 GM/DL (14.0-18.0); Immature Granulocytes % 0.8 %; Immature Granulocytes Absolute 0.08 #; Lymphocytes % 9.8 % (21.2-54.2); Mean Corpuscular HGB Conc 32.3 GM/DL (32-36); Mean Corpuscular Volume 101.4 FL (87-102); Mean Platelet Volume 11.4 FL (9.6-12.0); Monocytes % 14.3 % (1.7-12.7); Neutrophils % 74.6 % (38.7-73.9); Platelet Count 126 T/CUMM (130-400); Red Cell Distribution Width 12.4 % (9.3-17.3); White Blood Count 10.5 T/CUMM (4-12)
[2021-03-23 05:58] LABS: Calcium 8.7 MG/DL (8.5-10.1); Osmolality,Calculated 276.8 MOS/KG (273-304); Potassium 4.1 MMOL/L (3.5-5.1)
[2021-03-23 07:11] LABS: Macrocytosis Slight; Platelet Estimate Adequate; Polychromasia Slight
[2021-03-23] MEDS: PANTOPRAZOLE 40 MG TABLET PO SCH (09:18)
[2021-03-23] MEDS: DOCUSATE SODIUM 100 MG CAPSULE PO SCH (09:18)
[2021-03-23] MEDS: POLYETHYLENE GLYCOL POWDER 17 GM PACK PO SCH (09:18)
[2021-03-23] MEDS: hydrALAZINE 10 MG TABLET PO SCH (09:18)
[2021-03-23] MEDS: AMIODARONE 200 MG TABLET PO SCH ×2 (09:18→20:59)
[2021-03-23] MEDS: ASPIRIN EC 81 MG TABLET PO SCH (09:18)
[2021-03-23] MEDS: METOPROLOL TARTRATE 25 MG TABLET PO SCH ×2 (09:18→20:59)
[2021-03-23] MEDS: amLODIPine 5 MG TABLET PO SCH (09:19)
[2021-03-23] MEDS: CHLORHEXIDINE 0.12% ORAL RINSE 60 ML BOTTLE SWISH/SPIT SCH ×2 (09:19→21:01)
[2021-03-23] MEDS: APIXABAN 5 MG TABLET PO SCH ×2 (09:19→20:59)
[2021-03-23] MEDS: FERROUS SULFATE 325 MG TABLET PO SCH (09:19)
[2021-03-23] MEDS: ASCORBIC ACID 500 MG TABLET PO SCH ×2 (09:19→20:59)
[2021-03-24 06:23] LABS: Basophils % 0.4 % (0.0-0.8); Eosinophils # 0.1 10*3/uL (0.0-0.87); Eosinophils % 0.8 % (0.00-10.9); Hematocrit 37.4 VOL% (42.0-52.0); Hemoglobin 11.8 GM/DL (14.0-18.0); Immature Granulocytes % 0.9 %; Immature Granulocytes Absolute 0.07 #; Lymphocytes # 1.1 10*3/uL (1.4-4.0); Lymphocytes % 14.4 % (21.2-54.2); Mean Corpuscular HGB Conc 31.6 GM/DL (32-36); Mean Corpuscular Volume 102.2 FL (87-102); Mean Platelet Volume 11.1 FL (9.6-12.0); Monocytes % 16.3 % (1.7-12.7); Neutrophils % 67.2 % (38.7-73.9); Platelet Count 149 T/CUMM (130-400); Red Blood Count 3.66 MC/CUMM (3.8-5.5); Red Cell Distribution Width 12.6 % (9.3-17.3); White Blood Count 7.8 T/CUMM (4-12)
[2021-03-24 06:53] LABS: Alanine Aminotransferase 243 U/L (16-61); Albumin 2.4 G/DL (3.4-5.0); Alkaline Phosphatase 101 U/L (45-117); Aspartate Amino Transferase 100 U/L (0-37); Bilirubin,Indirect 1.7 MG/DL (0.0-1.0); Blood Urea Nitrogen 24 MG/DL (7-18); Calcium 8.7 MG/DL (8.5-10.1); Carbon Dioxide 27 MMOL/L (21-32); Estimated Glom Filtration Rate 73 ML/MIN; Glucose 102 MG/DL (74-106); Osmolality,Calculated 280.5 MOS/KG (273-304); Potassium 4.1 MMOL/L (3.5-5.1); Sodium 139 MMOL/L (136-145); Total Protein 5.5 G/DL (6.4-8.2)
[2021-03-24 06:55] LABS: Lymphocytes 14 % (20-55); Segmented Neutrophils 69 % (50-85); Total Cells Counted 100
[2021-03-24 06:56] LABS: Ovalocytes Slight; Platelet Estimate Adequate
[2021-03-24] MEDS: POLYETHYLENE GLYCOL POWDER 17 GM PACK PO SCH (09:18)
[2021-03-24] MEDS: APIXABAN 5 MG TABLET PO SCH ×2 (09:19→20:56)
[2021-03-24] MEDS: METOPROLOL TARTRATE 25 MG TABLET PO SCH ×2 (09:19→20:55)
[2021-03-24] MEDS: ASCORBIC ACID 500 MG TABLET PO SCH ×2 (09:19→20:56)
[2021-03-24] MEDS: FERROUS SULFATE 325 MG TABLET PO SCH (09:19)
[2021-03-24] MEDS: AMIODARONE 200 MG TABLET PO SCH ×2 (09:19→20:55)
[2021-03-24] MEDS: amLODIPine 5 MG TABLET PO SCH (09:19)
[2021-03-24] MEDS: ASPIRIN EC 81 MG TABLET PO SCH (09:19)
[2021-03-24] MEDS: PANTOPRAZOLE 40 MG TABLET PO SCH (09:19)
[2021-03-24] MEDS: CHLORHEXIDINE 0.12% ORAL RINSE 60 ML BOTTLE SWISH/SPIT SCH ×2 (09:20→20:55)
[2021-03-24] MEDS: DOCUSATE SODIUM 100 MG CAPSULE PO SCH (09:20)
[2021-03-24] MEDS ORDERED: amLODIPine 5 MG TABLET PO ONE (10:36)
[2021-03-25 06:08] LABS: Basophils % 0.4 % (0.0-0.8); Eosinophils # 0.1 10*3/uL (0.0-0.87); Eosinophils % 1.1 % (0.00-10.9); Hematocrit 37.3 VOL% (42.0-52.0); Hemoglobin 11.9 GM/DL (14.0-18.0); Immature Granulocytes % 0.9 %; Immature Granulocytes Absolute 0.07 #; Lymphocytes # 1.4 10*3/uL (1.4-4.0); Lymphocytes % 17.4 % (21.2-54.2); Mean Corpuscular HGB Conc 31.9 GM/DL (32-36); Mean Corpuscular Volume 102.5 FL (87-102); Mean Platelet Volume 10.9 FL (9.6-12.0); Monocytes % 12.2 % (1.7-12.7); Platelet Count 166 T/CUMM (130-400); Red Blood Count 3.64 MC/CUMM (3.8-5.5); Red Cell Distribution Width 12.6 % (9.3-17.3); White Blood Count 7.9 T/CUMM (4-12)
[2021-03-25 06:24] LABS: Alanine Aminotransferase 238 U/L (16-61); Albumin 2.5 G/DL (3.4-5.0); Alkaline Phosphatase 118 U/L (45-117); Aspartate Amino Transferase 82 U/L (0-37); Bilirubin,Indirect 1.2 MG/DL (0.0-1.0); Blood Urea Nitrogen 20 MG/DL (7-18); Calcium 8.6 MG/DL (8.5-10.1); Carbon Dioxide 27 MMOL/L (21-32); Estimated Glom Filtration Rate 74 ML/MIN; Glucose 102 MG/DL (74-106); Osmolality,Calculated 277.7 MOS/KG (273-304); Potassium 4.1 MMOL/L (3.5-5.1); Sodium 138 MMOL/L (136-145); Total Protein 5.8 G/DL (6.4-8.2)
[2021-03-25] MEDS: PANTOPRAZOLE 40 MG TABLET PO SCH (08:20)
[2021-03-25] MEDS: APIXABAN 5 MG TABLET PO SCH (08:21)
[2021-03-25] MEDS: FERROUS SULFATE 325 MG TABLET PO SCH (08:21)
[2021-03-25] MEDS: DOCUSATE SODIUM 100 MG CAPSULE PO SCH (08:21)
[2021-03-25] MEDS: METOPROLOL TARTRATE 25 MG TABLET PO SCH (08:21)
[2021-03-25] MEDS: ASCORBIC ACID 500 MG TABLET PO SCH (08:21)
[2021-03-25] MEDS: ASPIRIN EC 81 MG TABLET PO SCH (08:21)
[2021-03-25] MEDS: AMIODARONE 200 MG TABLET PO SCH (08:21)
[2021-03-25] MEDS: oxyCODONE/ACETAMINOPHEN 5-325 MG TABLET PO PRN (08:22)
[2021-03-25] MEDS: POLYETHYLENE GLYCOL POWDER 17 GM PACK PO SCH (08:23)
[2021-03-25] MEDS: CHLORHEXIDINE 0.12% ORAL RINSE 60 ML BOTTLE SWISH/SPIT SCH (08:23)
[2021-03-25] MEDS ORDERED: amLODIPine 10 MG TABLET PO SCH (09:00)
[2021-03-25 11:24] VITALS: BP 94/56
== END 2021-03-25 12:16 | disposition home health service (06) | DRG 216 ==
LOC: N.TELES 16:07 → N.CC 03-18 15:38 → N.CVR 03-19 10:39 → N.TELES 03-20 14:16
PROVIDERS: ADMIT Internal Medicine Cardiovascular Disease